=== PATIENT | male | born 1960 | race Two or more races ===

== ENCOUNTER 2020-08-30 23:09 | Emergency (ER) | payer MEDICARE, OTHER ==
[~2020-08-30] VITALS: Ht 162.6 cm; Wt 78.0 kg
[~2020-08-30 23:09] MED LIST: ATOR20TA37 PO; GLIP10TA13 PO; HYDR-3241 PO; LOVA20TA2 PO; METF500T17 PO; TAMS0.4C2 PO; TOBRAMYCIN; VANCOMYCIN
--- NOTE | 2020-08-30 23:41 | NUR ---
PT WHEELCHAIRED TO ROOM, AND PLACED IN BED, AND IN GOWN. VISUALIZATION OF THE RIGHT KNEE SHOWS SWELLING AND BRUISING TO ANTERIOR PORTION OF KNEE CAP. PT C/O PAIN TO LATERAL PORTION OF RIGHT THIGH. STATES HE FELL AND HIT TWO METAL PIPES WITH HIS RIGHT THIGH AND RIGHT KNEE. WALKED TO HIS HOUSE, AND SAT DOWN, AND HASN'T BEEN ABLE TO BEAR WEIGHT ON IT SINCE. PT ON CR MONITOR, AND MED STUDENT IN TO ROOM TO EVAL. PT A&OX4. SIDERAILS UP X2, AND CALL LIGHT WITHIN REACH.
--- NOTE | 2020-08-30 23:43 | NUR ---
REPORT FROM RM ESPAÑA
[2020-08-30] MEDS ORDERED: ONDANSETRON 2MG/ML, 2ML ONE (23:47)
[2020-08-30] MEDS ORDERED: HYDROmorphone 1 MG/ML, 1ML INJ ONE (23:47)
[2020-08-30] MEDS: HYDROmorphone 1 MG/ML, 1ML INJ IVPush PRN (23:56)
[2020-08-31] MEDS ORDERED: ONDANSETRON 2MG/ML, 2ML IVPush ONE
[2020-08-31] MEDS ORDERED: SODIUM CHLORIDE FLUSH 10ML SYR IVF ONE
[2020-08-31] MEDS ORDERED: OMNIPAQUE 350 MG/ML, 100ML BOTTLE ONE (01:00)
[2020-08-31 01:20] LABS: ALBUMIN 2.9 g/dL (3.4-5.0); ANION GAP 4 mmol/L (5-15); CALCIUM 7.8 mg/dL (8.5-10.1); CHLORIDE 103 mmol/L (98-107); CREATININE 0.98 mg/dL (0.7-1.3)
--- NOTE | 2020-08-31 01:45 | NUR ---
PT TO CT
--- NOTE | 2020-08-31 02:03 | NUR ---
PT RETURNED FROM IMAGING
[2020-08-31] MEDS ORDERED: HYDROmorphone 1 MG/ML, 1ML INJ ONE (02:22)
[2020-08-31] MEDS: HYDROmorphone 1 MG/ML, 1ML INJ IVPush PRN (02:25)
--- NOTE | 2020-08-31 02:37 | NUR ---
PT REPORTS INCREASING PAIN, REQUESTING PAIN MEDICATION. MEDICATED PER EMAR. PT DENIES ANY ADDITIONAL NEEDS AT THIS TIME. FAMILY AT BEDSIDE.
[2020-08-31 04:03] VITALS: BP 136/70
--- NOTE | 2020-08-31 04:51 | NUR ---
Patient given discharge instructions and they have confirmed that they understand the instructions. Patient ambulatory with use of crutches. Pt provided crutch training and able to return appropriate demo.
== END 2020-08-31 04:53 | disposition home or self-care (01) ==
LOC: ED 08-31 04:47
DX: S83.91XA Sprain of unspecified site of right knee, initial encounter (principal); S70.11XA Contusion of right thigh, initial encounter; S80.01XA Contusion of right knee, initial encounter; E11.9 Type 2 diabetes mellitus without complications; I10 Essential (primary) hypertension; W18.30XA Fall on same level, unspecified, initial encounter; Y93.89 Activity, other specified; Y92.89 Other specified places as the place of occurrence of the external cause; Y99.8 Other external cause status
CPT/HCPCS: 29505; 36415; 73552; 73564; 73701; 80048; 82040; 96374; 96375; 96376; 99285; J1170; J2405; Q9967